=== PATIENT | female | born 1935 | race Caucasian/White ===

== ENCOUNTER → 2016-06-11 | Outpatient (CLI) | payer MEDICARE, BC ==
[~2016-06-11] MED LIST: ASPIR LOW81 MG PO; ATENOLOL50 MG PO; HCTZ 25MG25 MG PO; LEVOTHYROXIN0.125 MG PO; LISINOPRIL40 MG PO; PLAVIX 75MG TAB75 MG PO; PRAVACHOL80 MG PO; PROTONIX 40MG T40 MG PO; VITAMIN D35000 IU PO; WELLBUTRIN75 MG PO; ZOLOFT100 MG PO
== END ==
LOC: MAMMO 09:28
DX: Z12.31 Encounter for screening mammogram for malignant neoplasm of breast (principal); Z00.00 Encounter for general adult medical examination without abnormal findings
CPT/HCPCS: G0202

== ENCOUNTER → 2016-06-11 | Outpatient (CLI) | payer MEDICARE, BC | LOC: MAMMO 09:23 | DX: Z00.00 Encounter for general adult medical examination without abnormal findings (principal); I25.10 Atherosclerotic heart disease of native coronary artery without angina pectoris; Z13.220 Encounter for screening for lipoid disorders; I10 Essential (primary) hypertension; E03.9 Hypothyroidism, unspecified | CPT/HCPCS: G0202 ==

== ENCOUNTER 2016-07-25 18:13 | Emergency (ER) | payer MEDICARE, BC ==
[2016-07-25 22:15] VITALS: BP 98/59
== END 2016-07-25 22:15 | disposition short-term general hospital (02) ==
LOC: ED 18:13
DX: K81.0 Acute cholecystitis (principal)
CPT/HCPCS: A4353; J0595; J1956; J7030; Q9967

== ENCOUNTER → 2016-08-04 | Outpatient (CLI) | payer MEDICARE, BC | LOC: LAB 10:14 | DX: Z86.19 Personal history of other infectious and parasitic diseases (principal); I10 Essential (primary) hypertension; R74.8 Abnormal levels of other serum enzymes; D53.9 Nutritional anemia, unspecified ==

== ENCOUNTER → 2016-08-18 | Outpatient (CLI) | payer MEDICARE, BC ==
[2016-07-25 22:15] VITALS: BP 98/59
== END ==
LOC: RAD 09:57
DX: M54.5 Low back pain (principal)

== ENCOUNTER → 2016-09-15 | Outpatient (CLI) | payer MEDICARE, BC | LOC: LAB 09:39 | DX: R74.8 Abnormal levels of other serum enzymes (principal); E78.2 Mixed hyperlipidemia ==

== ENCOUNTER → 2016-09-24 | Outpatient (CLI) | payer MEDICARE, BC | LOC: RAD 14:26 | DX: S62.636A Displaced fracture of distal phalanx of right little finger, initial encounter for closed fracture (principal) ==

== ENCOUNTER → 2016-12-15 | Outpatient (CLI) | payer MEDICARE, BC ==
[~2016-12-15] VITALS: Ht 152.4 cm; Wt 102.7 kg
[2016-12-15 13:58] VITALS: BP 180/84
== END ==
LOC: AMSURD 13:36
DX: Z01.810 Encounter for preprocedural cardiovascular examination (principal); H28 Cataract in diseases classified elsewhere

== ENCOUNTER → 2017-10-11 | Outpatient (CLI) | payer MEDICARE, BC ==
[2016-12-15 13:58] VITALS: BP 180/84
[2017-10-11 10:54] LABS: EOS # 0.3 (0.04-0.40); EOS % 5.5 % (1.0-5.0); HEMATOCRIT 41.8 % (37.0-47.0); HEMOGLOBIN 13.5 g/dL (12.5-16.0); LYMPH# 1.1 (1.50-4.00); MEAN CELL VOLUME 89 fl (78-100); MEAN CORPUSCULAR HEMOGLOBIN 29 pg (27-31); MEAN CORPUSCULAR HGB CONC 32 g/dL (33-37); MEAN PLATELET VOLUME 8.9 fl (7.4-10.4); MONO # 0.4 (0.20-0.80); NEU # 2.7 (1.40-6.50); PLATELET COUNT 198 K/mm3 (130-400); RED BLOOD COUNT 4.71 M/mm3 (4.10-5.30); RED CELL DISTRIBUTION WIDTH 14.3 % (11.5-14.5); WHITE BLOOD COUNT 4.5 K/mm3 (4.8-10.8)
== END ==
LOC: LAB 10:43
PROVIDERS: Nurse Practitioner Family
DX: Z00.00 Encounter for general adult medical examination without abnormal findings (principal); E03.9 Hypothyroidism, unspecified; I25.10 Atherosclerotic heart disease of native coronary artery without angina pectoris; I10 Essential (primary) hypertension; I48.91 Unspecified atrial fibrillation

== ENCOUNTER → 2017-12-15 | Outpatient (CLI) | payer MEDICARE, BC ==
[2016-12-15 13:58] VITALS: BP 180/84
[2017-12-15 13:20] LABS: ALBUMIN 3.9 g/dL (3.5-5.0); DIRECT BILIRUBIN 0.3 mg/dL (0.0-0.4); TOTAL BILIRUBIN 0.5 mg/dL (0.2-1.3); TOTAL PROTEIN 6.7 g/dL (6.3-8.2)
== END ==
LOC: LAB 12:46
PROVIDERS: Nurse Practitioner Family
DX: E03.9 Hypothyroidism, unspecified (principal); E78.2 Mixed hyperlipidemia

== ENCOUNTER → 2018-03-07 | Outpatient (CLI) | payer MEDICARE, BC ==
[2016-12-15 13:58] VITALS: BP 180/84
[2018-03-07 12:51] LABS: CALCIUM 9.3 mg/dL (8.4-10.2); POTASSIUM 3.1 mmol/L (3.6-5.0)
[2018-03-07 12:55] LABS: HEMATOCRIT 36.2 % (37.0-47.0); HEMOGLOBIN 11.4 g/dL (12.5-16.0); MEAN PLATELET VOLUME 8.9 fl (7.4-10.4); RED BLOOD COUNT 4.03 M/mm3 (4.10-5.30); RED CELL DISTRIBUTION WIDTH 14.2 % (11.5-14.5)
== END ==
LOC: LAB 12:12
PROVIDERS: Internal Medicine Interventional Cardiology
DX: I49.5 Sick sinus syndrome (principal)

== ENCOUNTER → 2018-03-09 | Outpatient (CLI) | payer MEDICARE, BC ==
[2016-12-15 13:58] VITALS: BP 180/84
== END ==
LOC: RAD 10:11
DX: Z45.018 Encounter for adjustment and management of other part of cardiac pacemaker (principal)

== ENCOUNTER → 2018-06-15 | Outpatient (CLI) | payer MEDICARE, BC ==
[2016-12-15 13:58] VITALS: BP 180/84
[~2018-06-15] MED LIST changes: +AMIODARONE200 MG PO; +ELIQUIS2.5 MG PO; +ELIQUIS5 MG PO; +ISOSORBIDE MONO60 M2 PO; +LEVOTHYROXINE175 MCG PO; +LOPRESSOR 550 MG/TAB PO; +NATURE'S BLEN5000 IU PO; -PROTONIX 40MG T40 MG PO; +PROTONIX TR40 M1 PO; -VITAMIN D35000 IU PO; +WELLBUTRIN 75MG75 MG PO; +ZOLOFT 100MG100 MG PO; -ZOLOFT100 MG PO
== END ==
LOC: LAB 10:10 → EDBD 10:10
DX: N30.01 Acute cystitis with hematuria (principal)

== ENCOUNTER 2018-06-19 15:52 | Observation (INO) | payer MEDICARE, BC ==
[~2018-06-19] VITALS: Ht 152.4 cm; Wt 92.8 kg
[~2018-06-19 15:52] MED LIST changes: -AMIODARONE200 MG PO; -ELIQUIS2.5 MG PO; -ELIQUIS5 MG PO; -ISOSORBIDE MONO60 M2 PO; -LEVOTHYROXINE175 MCG PO; -LOPRESSOR 550 MG/TAB PO; -WELLBUTRIN 75MG75 MG PO
[2018-06-19] MEDS ORDERED: ELIQUIS2.5 MG PO (16:00)
[2018-06-19] MEDS ORDERED: AMIODARONE200 MG PO (16:01)
[2018-06-19] MEDS ORDERED: WELLBUTRIN 75MG75 MG PO (16:02)
[2018-06-19] MEDS ORDERED: LOPRESSOR 550 MG/TAB PO (16:02)
[2018-06-19] MEDS ORDERED: ISOSORBIDE MONO60 M2 PO (16:02)
[2018-06-19] MEDS ORDERED: PRAVACHOL80 MG PO (16:03)
[2018-06-19 16:41] LABS: HEMATOCRIT 30.8 % (37.0-47.0); HEMOGLOBIN 9.3 g/dL (12.5-16.0); MEAN CELL VOLUME 81 fl (78-100); MEAN CORPUSCULAR HEMOGLOBIN 25 pg (27-31); MEAN CORPUSCULAR HGB CONC 30 g/dL (33-37); MEAN PLATELET VOLUME 8.3 fl (7.4-10.4); PLATELET COUNT 194 K/mm3 (130-400); RED BLOOD COUNT 3.79 M/mm3 (4.10-5.30); RED CELL DISTRIBUTION WIDTH 15.1 % (11.5-14.5); WHITE BLOOD COUNT 5.4 K/mm3 (4.8-10.8)
[2018-06-19 16:58] LABS: ALBUMIN 3.8 g/dL (3.5-5.0); CALCIUM 9.1 mg/dL (8.4-10.2); TOTAL BILIRUBIN 0.5 mg/dL (0.2-1.3); TOTAL PROTEIN 6.4 g/dL (6.3-8.2)
[2018-06-19 17:05] LABS: POTASSIUM 2.8 mmol/L (3.6-5.0)
[2018-06-19 17:17] LABS: URINE APPEARANCE CLOUDY; URINE COLOR YELLOW
[2018-06-19 17:18] LABS: URINE BILIRUBIN NEGATIVE (NEGATIVE); URINE BLOOD NEGATIVE (NEGATIVE); URINE GLUCOSE NEGATIVE (NEGATIVE); URINE KETONE NEGATIVE (NEGATIVE); URINE LEUKOCYTE ESTERASE TRACE (NEGATIVE); URINE NITRATE NEGATIVE (NEGATIVE); URINE PROTEIN(semi-quant) TRACE mg/dL (NEGATIVE); URINE UROBILINOGEN NORMAL (NORMAL)
[2018-06-19 17:19] LABS: HYPOCHROMIA 1+; LYMPHOCYTE 8 % (20-51); MONOCYTE 9 % (3-10); NEUTROPHILS 81 % (42-75)
[2018-06-19 17:20] LABS: MICROCYTOSIS 1+; OVALOCYTES 1+; POLYCHROMASIA 1+; TEAR DROP CELLS 1+
[2018-06-19] MEDS ORDERED: LEVOTHYROXINE175 MCG PO (17:41)
[2018-06-19] MEDS ORDERED: ELIQUIS5 MG PO (17:42)
[2018-06-19 18:41] VITALS: BP 128/82
[2018-06-19 18:42] VITALS: BP 128/82
[2018-06-19 23:43] VITALS: BP 127/82
[2018-06-20 03:00] VITALS: BP 130/84
[2018-06-20 06:20] VITALS: BP 105/62
[2018-06-20 07:28] LABS: CALCIUM 8.6 mg/dL (8.4-10.2)
[2018-06-20 07:38] LABS: HEMATOCRIT 30.3 % (37.0-47.0); MEAN CELL VOLUME 82 fl (78-100); MEAN CORPUSCULAR HGB CONC 30 g/dL (33-37); MEAN PLATELET VOLUME 9.2 fl (7.4-10.4); PLATELET COUNT 188 K/mm3 (130-400); RED BLOOD COUNT 3.71 M/mm3 (4.10-5.30); RED CELL DISTRIBUTION WIDTH 15.3 % (11.5-14.5); WHITE BLOOD COUNT 3.8 K/mm3 (4.8-10.8)
[2018-06-20 08:01] LABS: MEAN CORPUSCULAR HEMOGLOBIN 24 pg (27-31)
[2018-06-20 08:31] LABS: LYMPHOCYTE 17 % (20-51); MONOCYTE 16 % (3-10); NEUTROPHILS 62 % (42-75); OVALOCYTES 1+
[2018-06-20 08:32] LABS: POTASSIUM 2.9 mmol/L (3.6-5.0)
[2018-06-20 10:36] VITALS: BP 121/78
[2018-06-20 14:43] VITALS: BP 117/80
[2018-06-20 16:02] LABS: CALCIUM 8.4 mg/dL (8.4-10.2)
[2018-06-20 16:33] LABS: TRANSFERRIN 273 mg/dL (192-382)
[2018-06-20 18:12] VITALS: BP 126/86
[2018-06-20 23:34] VITALS: BP 141/87
[2018-06-21 02:48] VITALS: BP 145/81
[2018-06-21 05:56] LABS: HEMATOCRIT 31.9 % (37.0-47.0); HEMOGLOBIN 9.6 g/dL (12.5-16.0); MEAN CELL VOLUME 82 fl (78-100); MEAN CORPUSCULAR HEMOGLOBIN 25 pg (27-31); MEAN CORPUSCULAR HGB CONC 30 g/dL (33-37); MEAN PLATELET VOLUME 8.8 fl (7.4-10.4); PLATELET COUNT 157 K/mm3 (130-400); RED CELL DISTRIBUTION WIDTH 15.7 % (11.5-14.5); WHITE BLOOD COUNT 4.7 K/mm3 (4.8-10.8)
[2018-06-21 06:20] VITALS: BP 156/86
[2018-06-21 06:38] LABS: CALCIUM 8.6 mg/dL (8.4-10.2); POTASSIUM 3.8 mmol/L (3.6-5.0)
[2018-06-21 06:39] LABS: LYMPHOCYTE 22 % (20-51); MONOCYTE 13 % (3-10); NEUTROPHILS 65 % (42-75)
[2018-06-21 06:40] LABS: HYPOCHROMIA 1+; OVALOCYTES 1+; POLYCHROMASIA 1+
[2018-06-21 10:15] VITALS: BP 146/81
== END 2018-06-21 10:35 | disposition home or self-care (01) ==
LOC: ED 15:52 → EDBD 16:19 → ED 16:19 → MED/SURG 18:05 → ED 18:05 → EDBD 18:05 → MED/SURG 18:06
PROVIDERS: Internal Medicine; ADMIT Family Medicine
DX: R11.0 Nausea (principal); E87.1 Hypo-osmolality and hyponatremia; E87.6 Hypokalemia; E86.9 Volume depletion, unspecified; D50.9 Iron deficiency anemia, unspecified; N39.0 Urinary tract infection, site not specified; R53.81 Other malaise; R53.83 Other fatigue; K21.9 Gastro-esophageal reflux disease without esophagitis; Z79.01 Long term (current) use of anticoagulants; Z79.82 Long term (current) use of aspirin; Z88.2 Allergy status to sulfonamides
CPT/HCPCS: A4216; G0378; J0696; J3480

== ENCOUNTER → 2018-06-27 | Outpatient (CLI) | payer MEDICARE, BC ==
[2018-06-21 10:15] VITALS: BP 146/81
[~2018-06-27] MED LIST changes: +AMIODARONE200 MG PO; +ELIQUIS2.5 MG PO; +ELIQUIS5 MG PO; +ISOSORBIDE MONO60 M2 PO; +LEVOTHYROXINE175 MCG PO; +LOPRESSOR 550 MG/TAB PO; +WELLBUTRIN 75MG75 MG PO
[2018-06-27 09:29] LABS: BASO # 0.1 (0.02-0.10); EOS # 0.1 (0.04-0.40); EOS % 3.2 % (1.0-5.0); HEMATOCRIT 30.9 % (37.0-47.0); MEAN CELL VOLUME 82 fl (78-100); MEAN PLATELET VOLUME 9.5 fl (7.4-10.4); MONO # 0.5 (0.20-0.80); NEU # 3.1 (1.40-6.50); PLATELET COUNT 243 K/mm3 (130-400); RED BLOOD COUNT 3.76 M/mm3 (4.10-5.30); RED CELL DISTRIBUTION WIDTH 16.1 % (11.5-14.5); WHITE BLOOD COUNT 4.4 K/mm3 (4.8-10.8)
[2018-06-27 09:31] LABS: LYMPH# 0.6 (1.50-4.00); MEAN CORPUSCULAR HEMOGLOBIN 24 pg (27-31); MEAN CORPUSCULAR HGB CONC 29 g/dL (33-37)
[2018-06-27 10:03] LABS: ALBUMIN 3.6 g/dL (3.5-5.0); CALCIUM 9.2 mg/dL (8.4-10.2); POTASSIUM 4.7 mmol/L (3.6-5.0); TOTAL BILIRUBIN 0.5 mg/dL (0.2-1.3)
== END ==
LOC: LAB 08:56
PROVIDERS: Internal Medicine
DX: I25.10 Atherosclerotic heart disease of native coronary artery without angina pectoris (principal); D63.8 Anemia in other chronic diseases classified elsewhere; I10 Essential (primary) hypertension; E03.9 Hypothyroidism, unspecified; R53.83 Other fatigue

== ENCOUNTER → 2018-06-28 | Day surgery (SDC) | payer MEDICARE, BC | LOC: MSO 13:09 | DX: D12.5 Benign neoplasm of sigmoid colon (principal); K57.30 Diverticulosis of large intestine without perforation or abscess without bleeding; K29.70 Gastritis, unspecified, without bleeding; K21.9 Gastro-esophageal reflux disease without esophagitis; Z88.2 Allergy status to sulfonamides; E03.9 Hypothyroidism, unspecified; K92.1 Melena; D50.0 Iron deficiency anemia secondary to blood loss (chronic); Z79.01 Long term (current) use of anticoagulants; Z95.0 Presence of cardiac pacemaker; Z96.643 Presence of artificial hip joint, bilateral; Z79.82 Long term (current) use of aspirin; I11.0 Hypertensive heart disease with heart failure; I50.9 Heart failure, unspecified; M19.90 Unspecified osteoarthritis, unspecified site; E66.01 Morbid (severe) obesity due to excess calories; I25.10 Atherosclerotic heart disease of native coronary artery without angina pectoris ==

== ENCOUNTER → 2018-07-13 | Outpatient (CLI) | payer MEDICARE, BC ==
[2018-06-21 10:15] VITALS: BP 146/81
[2018-07-13 15:23] LABS: EOS # 0.2 (0.04-0.40); EOS % 3.1 % (1.0-5.0); HEMOGLOBIN 11.3 g/dL (12.5-16.0); LYMPH# 0.8 (1.50-4.00); MEAN CELL VOLUME 86 fl (78-100); MEAN CORPUSCULAR HEMOGLOBIN 26 pg (27-31); MEAN CORPUSCULAR HGB CONC 30 g/dL (33-37); MEAN PLATELET VOLUME 9.3 fl (7.4-10.4); MONO # 0.6 (0.20-0.80); NEU # 3.6 (1.40-6.50); PLATELET COUNT 219 K/mm3 (130-400); RED BLOOD COUNT 4.42 M/mm3 (4.10-5.30); WHITE BLOOD COUNT 5.2 K/mm3 (4.8-10.8)
[2018-07-13 15:31] LABS: POTASSIUM 3.3 mmol/L (3.6-5.0); TOTAL BILIRUBIN 0.6 mg/dL (0.2-1.3); TOTAL PROTEIN 6.6 g/dL (6.3-8.2)
[2018-07-13 15:33] LABS: RED CELL DISTRIBUTION WIDTH 22.5 % (11.5-14.5)
== END ==
LOC: LAB 14:58
PROVIDERS: Internal Medicine
DX: I10 Essential (primary) hypertension (principal); E03.9 Hypothyroidism, unspecified; I25.10 Atherosclerotic heart disease of native coronary artery without angina pectoris

== ENCOUNTER → 2018-07-18 | Outpatient (CLI) | payer MEDICARE, BC ==
[2018-06-21 10:15] VITALS: BP 146/81
[~2018-07-18] MED LIST changes: +ALDACTONE25 M1 PO; +GOOD NEIGHBOR100 M2 PO; +POTASSIUM CHLO20 ME3 PO
[2018-07-18 10:19] LABS: ALBUMIN 3.8 g/dL (3.5-5.0); CALCIUM 8.9 mg/dL (8.4-10.2); TOTAL BILIRUBIN 0.5 mg/dL (0.2-1.3); TOTAL PROTEIN 6.4 g/dL (6.3-8.2)
[2018-07-18 10:23] LABS: HEMATOCRIT 38.2 % (37.0-47.0); HEMOGLOBIN 11.2 g/dL (12.5-16.0); MEAN CELL VOLUME 88 fl (78-100); MEAN CORPUSCULAR HEMOGLOBIN 26 pg (27-31); MEAN PLATELET VOLUME 9.6 fl (7.4-10.4); PLATELET COUNT 216 K/mm3 (130-400); RED BLOOD COUNT 4.34 M/mm3 (4.10-5.30)
[2018-07-18 10:34] LABS: MEAN CORPUSCULAR HGB CONC 29 g/dL (33-37)
[2018-07-18 10:35] LABS: RED CELL DISTRIBUTION WIDTH 23.1 % (11.5-14.5)
[2018-07-18 10:42] LABS: POTASSIUM 2.9 mmol/L (3.6-5.0)
[2018-07-18 10:57] LABS: LYMPHOCYTE 14 % (20-51); MONOCYTE 11 % (3-10); NEUTROPHILS 73 % (42-75)
== END ==
LOC: LAB 09:47
PROVIDERS: Internal Medicine
DX: I48.91 Unspecified atrial fibrillation (principal); I10 Essential (primary) hypertension; E61.1 Iron deficiency

== ENCOUNTER 2018-07-22 | Inpatient (IN) | payer MEDICARE, BC ==
[~2018-07-22] VITALS: Ht 152.4 cm; Wt 89.7 kg
[~2018-07-22] MED LIST changes: -ALDACTONE25 M1 PO; -GOOD NEIGHBOR100 M2 PO; -POTASSIUM CHLO20 ME3 PO
[2018-07-22] MEDS ORDERED: ALDACTONE25 M1 PO (23:06)
[2018-07-22] MEDS ORDERED: POTASSIUM CHLO20 ME3 PO (23:07)
[2018-07-22] MEDS ORDERED: GOOD NEIGHBOR100 M2 PO (23:12)
[2018-07-23] VITALS (8 sets, daily range): BP systolic 106–149; BP diastolic 57–101
[2018-07-23 09:29] LABS: POTASSIUM 3.4 mmol/L (3.6-5.0)
[2018-07-24 03:30] VITALS: BP 127/76
[2018-07-24 06:32] VITALS: BP 150/87
[2018-07-24 08:19] LABS: CALCIUM 8.5 mg/dL (8.4-10.2)
[2018-07-24 08:32] LABS: POTASSIUM 2.8 mmol/L (3.6-5.0)
[2018-07-24 11:10] VITALS: BP 98/61
[2018-07-24 15:00] VITALS: BP 108/71
[2018-07-24 18:16] VITALS: BP 112/68
[2018-07-24 23:10] VITALS: BP 103/67
[2018-07-25 02:35] VITALS: BP 114/76
[2018-07-25 06:03] VITALS: BP 135/85
[2018-07-25 07:00] LABS: CALCIUM 8.5 mg/dL (8.4-10.2); GLUCOSE 80 mg/dL (65-105); POTASSIUM 3.3 mmol/L (3.6-5.0); SODIUM 137 mmol/L (137-145)
[2018-07-25 07:16] LABS: CARBON DIOXIDE > 40 mmol/L (22-30)
[2018-07-25 11:58] VITALS: BP 93/63
[2018-07-25 14:20] VITALS: BP 100/52
[2018-07-25 18:32] VITALS: BP 87/55
[2018-07-25 23:27] VITALS: BP 120/77
[2018-07-26 03:05] VITALS: BP 106/70
[2018-07-26 05:34] LABS: HEMATOCRIT 37.7 % (37.0-47.0); HEMOGLOBIN 11.3 g/dL (12.5-16.0); MEAN CELL VOLUME 90 fl (78-100); MEAN CORPUSCULAR HEMOGLOBIN 27 pg (27-31); MEAN CORPUSCULAR HGB CONC 30 g/dL (33-37); MEAN PLATELET VOLUME 9.6 fl (7.4-10.4); PLATELET COUNT 116 K/mm3 (130-400); RED BLOOD COUNT 4.21 M/mm3 (4.10-5.30); WHITE BLOOD COUNT 3.1 K/mm3 (4.8-10.8)
[2018-07-26 05:44] LABS: RED CELL DISTRIBUTION WIDTH 22.4 % (11.5-14.5)
[2018-07-26 05:47] LABS: ALBUMIN 3.2 g/dL (3.5-5.0); CALCIUM 8.1 mg/dL (8.4-10.2); TOTAL BILIRUBIN 0.5 mg/dL (0.2-1.3); TOTAL PROTEIN 5.7 g/dL (6.3-8.2)
[2018-07-26 06:17] VITALS: BP 109/71
[2018-07-26 06:33] LABS: BAND 3 % (0-10); LYMPHOCYTE 12 % (20-51); MONOCYTE 14 % (3-10); NEUTROPHILS 69 % (42-75)
[2018-07-26 06:34] LABS: ACANTHROCYTES 1+; OVALOCYTES 1+
[2018-07-26 06:48] LABS: POTASSIUM 2.9 mmol/L (3.6-5.0)
[2018-07-26 11:20] VITALS: BP 94/64
[2018-07-26 15:00] VITALS: BP 115/78
== END 2018-07-26 13:06 | disposition swing bed (61) | DRG 293 ==
LOC: MED/SURG 23:47
PROVIDERS: Internal Medicine; Nurse Practitioner; ADMIT Physician Assistant
DX: I50.23 Acute on chronic systolic (congestive) heart failure (principal); I25.10 Atherosclerotic heart disease of native coronary artery without angina pectoris; Z95.1 Presence of aortocoronary bypass graft; Z95.5 Presence of coronary angioplasty implant and graft; Z95.0 Presence of cardiac pacemaker; I48.91 Unspecified atrial fibrillation; E03.9 Hypothyroidism, unspecified; R09.02 Hypoxemia; E87.6 Hypokalemia
CPT/HCPCS: J1650; J1940

== ENCOUNTER 2018-07-22 21:32 | Emergency (ER) | payer MEDICARE, BC ==
[2018-07-22 22:29] LABS: HEMOGLOBIN 12.2 g/dL (12.5-16.0); MEAN CELL VOLUME 88 fl (78-100); MEAN CORPUSCULAR HEMOGLOBIN 27 pg (27-31); MEAN CORPUSCULAR HGB CONC 31 g/dL (33-37); MEAN PLATELET VOLUME 9.5 fl (7.4-10.4); PLATELET COUNT 144 K/mm3 (130-400); RED BLOOD COUNT 4.56 M/mm3 (4.10-5.30); WHITE BLOOD COUNT 5.6 K/mm3 (4.8-10.8)
[2018-07-22 22:44] LABS: ALBUMIN 4.1 g/dL (3.5-5.0); CALCIUM 9.5 mg/dL (8.4-10.2); POTASSIUM 3.8 mmol/L (3.6-5.0); TOTAL BILIRUBIN 0.8 mg/dL (0.2-1.3); TOTAL PROTEIN 6.7 g/dL (6.3-8.2)
[2018-07-22 22:49] LABS: URINE APPEARANCE CLEAR; URINE BILIRUBIN NEGATIVE (NEGATIVE); URINE BLOOD TRACE (NEGATIVE); URINE COLOR YELLOW; URINE GLUCOSE NEGATIVE (NEGATIVE); URINE KETONE NEGATIVE (NEGATIVE); URINE LEUKOCYTE ESTERASE NEGATIVE (NEGATIVE); URINE MUCUS PRESENT (NOT PRESENT); URINE NITRATE NEGATIVE (NEGATIVE); URINE PROTEIN(semi-quant) 1+ mg/dL (NEGATIVE); URINE UROBILINOGEN NORMAL (NORMAL); URINE WBC 0-1 /hpf (0-3)
[2018-07-22 22:50] LABS: RED CELL DISTRIBUTION WIDTH 23.7 % (11.5-14.5)
[2018-07-22 22:58] LABS: TROPONIN-I < 0.03 ng/mL (0.00-0.06)
[2018-07-22] MEDS ORDERED: ALDACTONE25 M1 PO (23:06)
[2018-07-22] MEDS ORDERED: POTASSIUM CHLO20 ME3 PO (23:07)
[2018-07-22] MEDS ORDERED: GOOD NEIGHBOR100 M2 PO (23:12)
[2018-07-22 23:19] LABS: BAND 3 % (0-10); LYMPHOCYTE 5 % (20-51); MONOCYTE 16 % (3-10); NEUTROPHILS 76 % (42-75); OVALOCYTES 1+; SCHISTOCYTES 1+; STOMATOCYTE 1+; TEAR DROP CELLS 1+
[2018-07-23 00:04] VITALS: BP 148/101
== END 2018-07-23 00:04 | disposition other institution (70) ==
LOC: ED 21:32
PROVIDERS: Physician Assistant
DX: I50.9 Heart failure, unspecified (principal); R09.02 Hypoxemia; I48.91 Unspecified atrial fibrillation; Z88.2 Allergy status to sulfonamides; Z87.891 Personal history of nicotine dependence; Z87.11 Personal history of peptic ulcer disease; Z98.51 Tubal ligation status; Z95.5 Presence of coronary angioplasty implant and graft; Z96.641 Presence of right artificial hip joint
CPT/HCPCS: J1940

== ENCOUNTER 2018-07-26 12:56 | Inpatient (IN) | payer MEDICARE, BC ==
[~2018-07-26] VITALS: Ht 152.4 cm; Wt 86.8 kg
[~2018-07-26 12:56] MED LIST changes: +ALDACTONE25 M1 PO; +GOOD NEIGHBOR100 M2 PO; +POTASSIUM CHLO20 ME3 PO
[2018-07-26 13:21] VITALS: BP 94/54
[2018-07-26 13:24] VITALS: BP 94/54
[2018-07-26 18:00] VITALS: BP 115/76
[2018-07-26 18:38] LABS: CALCIUM 8.2 mg/dL (8.4-10.2); POTASSIUM 3.9 mmol/L (3.6-5.0)
[2018-07-26 21:42] LABS: URINE APPEARANCE CLOUDY; URINE BILIRUBIN NEGATIVE (NEGATIVE); URINE BLOOD 50 ery/uL (NEGATIVE); URINE COLOR YELLOW; URINE GLUCOSE NEGATIVE (NEGATIVE); URINE KETONE NEGATIVE (NEGATIVE); URINE LEUKOCYTE ESTERASE 1+ (NEGATIVE); URINE NITRATE NEGATIVE (NEGATIVE); URINE PROTEIN(semi-quant) NEGATIVE (NEGATIVE); URINE UROBILINOGEN NORMAL (NORMAL); URINE WBC 16-30 /hpf (0-3)
[2018-07-27 06:01] VITALS: BP 124/76
[2018-07-27 06:55] LABS: CALCIUM 8.1 mg/dL (8.4-10.2); GLUCOSE 81 mg/dL (65-105); POTASSIUM 3.4 mmol/L (3.6-5.0); SODIUM 136 mmol/L (137-145)
[2018-07-27 07:14] LABS: CARBON DIOXIDE > 40 mmol/L (22-30)
[2018-07-27 15:16] VITALS: BP 123/65
[2018-07-28 06:16] VITALS: BP 150/89
[2018-07-28 06:38] LABS: CALCIUM 8.5 mg/dL (8.4-10.2); POTASSIUM 3.8 mmol/L (3.6-5.0)
[2018-07-28 18:01] VITALS: BP 123/83
[2018-07-29 06:22] VITALS: BP 124/47
[2018-07-29 11:02] LABS: CALCIUM 8.9 mg/dL (8.4-10.2); POTASSIUM 3.8 mmol/L (3.6-5.0)
[2018-07-29 18:17] VITALS: BP 105/20
[2018-07-30 06:02] VITALS: BP 117/78
[2018-07-30 18:30] VITALS: BP 100/65
[2018-07-31 06:42] VITALS: BP 111/73
[2018-07-31 11:53] LABS: CALCIUM 9.5 mg/dL (8.4-10.2); POTASSIUM 4.2 mmol/L (3.6-5.0)
[2018-07-31 18:00] VITALS: BP 103/62
[2018-08-01 05:40] VITALS: BP 112/73
[2018-08-01 18:13] VITALS: BP 79/50
[2018-08-02 06:12] VITALS: BP 93/61
[2018-08-02 14:39] LABS: EOS # 0.2 (0.04-0.40); EOS % 3.4 % (1.0-5.0); HEMATOCRIT 42.1 % (37.0-47.0); HEMOGLOBIN 13.1 g/dL (12.5-16.0); LYMPH# 1.1 (1.50-4.00); MEAN CELL VOLUME 85 fl (78-100); MEAN CORPUSCULAR HEMOGLOBIN 26 pg (27-31); MEAN CORPUSCULAR HGB CONC 31 g/dL (33-37); MEAN PLATELET VOLUME 9.4 fl (7.4-10.4); MONO # 0.7 (0.20-0.80); NEU # 3.8 (1.40-6.50); PLATELET COUNT 237 K/mm3 (130-400); RED BLOOD COUNT 4.96 M/mm3 (4.10-5.30); WHITE BLOOD COUNT 5.9 K/mm3 (4.8-10.8)
[2018-08-02 14:49] LABS: RED CELL DISTRIBUTION WIDTH 21.6 % (11.5-14.5)
[2018-08-02 14:52] LABS: ALBUMIN 4.1 g/dL (3.5-5.0); CALCIUM 9.6 mg/dL (8.4-10.2); TOTAL BILIRUBIN 0.7 mg/dL (0.2-1.3); TOTAL PROTEIN 7.3 g/dL (6.3-8.2)
[2018-08-02 15:09] LABS: TROPONIN-I < 0.03 ng/mL (0.00-0.06)
[2018-08-02 16:00] VITALS: BP 122/71
[2018-08-02 16:50] VITALS: BP 65/35
[2018-08-02 17:06] VITALS: BP 92/60
[2018-08-02 17:20] VITALS: BP 122/71
[2018-08-02 19:47] LABS: PH-URINE 6.5 (5.0 - 8.0); URINE APPEARANCE HAZY; URINE BILIRUBIN NEGATIVE (NEGATIVE); URINE BLOOD NEGATIVE (NEGATIVE); URINE COLOR YELLOW; URINE GLUCOSE NEGATIVE (NEGATIVE); URINE KETONE NEGATIVE (NEGATIVE); URINE NITRATE NEGATIVE (NEGATIVE); URINE PROTEIN(semi-quant) TRACE mg/dL (NEGATIVE); URINE UROBILINOGEN NORMAL (NORMAL)
[2018-08-02 19:48] LABS: URINE LEUKOCYTE ESTERASE NEGATIVE (NEGATIVE)
[2018-08-02 20:00] VITALS: BP 88/59
[2018-08-03] VITALS (8 sets, daily range): BP systolic 79–112; BP diastolic 50–71
[2018-08-03 06:32] LABS: HEMATOCRIT 37.9 % (37.0-47.0); HEMOGLOBIN 11.8 g/dL (12.5-16.0); MEAN CELL VOLUME 85 fl (78-100); MEAN CORPUSCULAR HEMOGLOBIN 26 pg (27-31); MEAN CORPUSCULAR HGB CONC 31 g/dL (33-37); MEAN PLATELET VOLUME 9.8 fl (7.4-10.4); PLATELET COUNT 205 K/mm3 (130-400); RED BLOOD COUNT 4.48 M/mm3 (4.10-5.30); WHITE BLOOD COUNT 4.5 K/mm3 (4.8-10.8)
[2018-08-03 06:59] LABS: RED CELL DISTRIBUTION WIDTH 20.9 % (11.5-14.5)
[2018-08-03 07:01] LABS: ALBUMIN 3.4 g/dL (3.5-5.0); POTASSIUM 3.5 mmol/L (3.6-5.0); TOTAL BILIRUBIN 0.6 mg/dL (0.2-1.3); TOTAL PROTEIN 6.3 g/dL (6.3-8.2)
[2018-08-03 07:21] LABS: BAND 2 % (0-10); LYMPHOCYTE 24 % (20-51); MONOCYTE 4 % (3-10); NEUTROPHILS 68 % (42-75)
[2018-08-04 03:20] VITALS: BP 107/68
[2018-08-04 06:20] VITALS: BP 106/71
[2018-08-04 06:51] LABS: CALCIUM 9.4 mg/dL (8.4-10.2)
[2018-08-04 11:00] VITALS: BP 110/66
[2018-08-04 15:00] VITALS: BP 110/66
[2018-08-04 19:07] VITALS: BP 99/64
[2018-08-04 20:45] VITALS: BP 97/64
[2018-08-05 06:28] VITALS: BP 104/70
[2018-08-05 06:29] VITALS: BP 104/70
[2018-08-05 18:29] VITALS: BP 86/60
[2018-08-05 21:15] VITALS: BP 108/63
[2018-08-06 06:11] VITALS: BP 114/69
[2018-08-06 11:41] LABS: CALCIUM 9.4 mg/dL (8.4-10.2)
[2018-08-06 18:39] VITALS: BP 99/63
[2018-08-06 18:40] VITALS: BP 99/63
[2018-08-06 20:30] VITALS: BP 105/70
[2018-08-07 06:13] VITALS: BP 148/80
[2018-08-07 17:16] VITALS: BP 125/80
[2018-08-07 19:24] VITALS: BP 112/63
[2018-08-08 06:22] VITALS: BP 128/79
[2018-08-08] MEDS ORDERED: PRAVACHOL80 MG PO (14:04)
[2018-08-08] MEDS ORDERED: POTASSIUM CHLO20 ME3 PO (14:04)
[2018-08-08 18:12] VITALS: BP 88/55
[2018-08-08 19:14] VITALS: BP 116/73
[2018-08-08 19:27] VITALS: BP 116/73
[2018-08-08 21:30] VITALS: BP 110/68
[2018-08-09 06:28] VITALS: BP 120/61
[2018-08-09 06:30] VITALS: BP 120/61
[2018-08-09 12:52] LABS: CALCIUM 9.3 mg/dL (8.4-10.2); POTASSIUM 3.8 mmol/L (3.6-5.0)
[2018-08-09 18:00] VITALS: BP 81/51
[2018-08-09 19:00] VITALS: BP 94/62
[2018-08-10 06:19] VITALS: BP 122/78
[2018-08-10] MEDS ORDERED: IPRATROPIUM BROM3 M1 IH (11:24)
[2018-08-10] MEDS ORDERED: ALBUTEROL2.5 MG/3 M IH (11:24)
[2018-08-10] MEDS ORDERED: LISINOPRIL40 MG PO (11:24)
[2018-08-10] MEDS ORDERED: ALDACTONE25 M1 PO (11:25)
[2018-08-10] MEDS ORDERED: EFFER-K20 MEQ PO (11:26)
[2018-08-10] MEDS ORDERED: FUROSEMIDE40 MG PO (11:26)
[2018-08-10] MEDS ORDERED: CLOPIDOGREL PO (11:48)
== END 2018-08-10 12:30 | disposition home health service (06) | DRG 947 ==
LOC: MED/SURG 12:56
PROVIDERS: Family Medicine; Nurse Practitioner Family; Physician Assistant; ADMIT Nurse Practitioner Primary Care
DX: R53.81 Other malaise (principal); I50.23 Acute on chronic systolic (congestive) heart failure; E87.1 Hypo-osmolality and hyponatremia; Z66 Do not resuscitate; I25.10 Atherosclerotic heart disease of native coronary artery without angina pectoris; Z95.1 Presence of aortocoronary bypass graft; Z95.5 Presence of coronary angioplasty implant and graft; E03.9 Hypothyroidism, unspecified; Z95.0 Presence of cardiac pacemaker; E87.6 Hypokalemia; I95.1 Orthostatic hypotension; R11.2 Nausea with vomiting, unspecified; Z99.81 Dependence on supplemental oxygen
CPT/HCPCS: A4216; J0696; J1650; J1940; J2405; J7030

== ENCOUNTER → 2018-08-12 | Outpatient (CLI) | payer MEDICARE, BC ==
[2018-08-10 06:19] VITALS: BP 122/78
[~2018-08-12] MED LIST changes: +ALBUTEROL2.5 MG/3 M IH; +CLOPIDOGREL PO; +EFFER-K20 MEQ PO; +FUROSEMIDE40 MG PO; +IPRATROPIUM BROM3 M1 IH
[2018-08-12 13:30] LABS: CALCIUM 9.4 mg/dL (8.4-10.2); POTASSIUM 3.9 mmol/L (3.6-5.0)
== END ==
LOC: LAB 12:54
PROVIDERS: Internal Medicine
DX: I10 Essential (primary) hypertension (principal)

== ENCOUNTER → 2018-08-15 | Outpatient (CLI) | payer MEDICARE, BC ==
[2018-08-10 06:19] VITALS: BP 122/78
[2018-08-15 14:12] LABS: HEMATOCRIT 43.6 % (37.0-47.0); HEMOGLOBIN 13.5 g/dL (12.5-16.0); MEAN CELL VOLUME 86 fl (78-100); MEAN CORPUSCULAR HEMOGLOBIN 27 pg (27-31); MEAN CORPUSCULAR HGB CONC 31 g/dL (33-37); MEAN PLATELET VOLUME 9.8 fl (7.4-10.4); PLATELET COUNT 198 K/mm3 (130-400); RED BLOOD COUNT 5.09 M/mm3 (4.10-5.30); WHITE BLOOD COUNT 5.7 K/mm3 (4.8-10.8)
[2018-08-15 14:31] LABS: ALBUMIN 3.6 g/dL (3.5-5.0); CALCIUM 9.2 mg/dL (8.4-10.2); POTASSIUM 3.7 mmol/L (3.6-5.0); TOTAL BILIRUBIN 0.6 mg/dL (0.2-1.3); TOTAL PROTEIN 6.7 g/dL (6.3-8.2)
[2018-08-15 14:47] LABS: RED CELL DISTRIBUTION WIDTH 20.5 % (11.5-14.5)
[2018-08-15 14:48] LABS: LYMPHOCYTE 17 % (20-51); MONOCYTE 12 % (3-10); NEUTROPHILS 71 % (42-75)
== END ==
LOC: LAB 14:01
PROVIDERS: Internal Medicine
DX: E03.9 Hypothyroidism, unspecified (principal); I25.10 Atherosclerotic heart disease of native coronary artery without angina pectoris; I11.0 Hypertensive heart disease with heart failure; I50.9 Heart failure, unspecified

== ENCOUNTER → 2018-08-22 | Outpatient (CLI) | payer MEDICARE, BC ==
[2018-08-10 06:19] VITALS: BP 122/78
[2018-08-22 11:58] LABS: ALBUMIN 3.6 g/dL (3.5-5.0); CALCIUM 9.3 mg/dL (8.4-10.2); POTASSIUM 4.2 mmol/L (3.6-5.0); TOTAL BILIRUBIN 0.6 mg/dL (0.2-1.3); TOTAL PROTEIN 6.4 g/dL (6.3-8.2)
== END ==
LOC: LAB 11:18
PROVIDERS: Internal Medicine
DX: E03.9 Hypothyroidism, unspecified (principal); I11.0 Hypertensive heart disease with heart failure; I50.9 Heart failure, unspecified; I25.10 Atherosclerotic heart disease of native coronary artery without angina pectoris

== ENCOUNTER → 2018-08-24 | Outpatient (CLI) | payer MEDICARE, BC ==
[2018-08-10 06:19] VITALS: BP 122/78
== END ==
LOC: LAB 11:19
DX: I11.0 Hypertensive heart disease with heart failure (principal); I50.9 Heart failure, unspecified; E03.9 Hypothyroidism, unspecified; I25.10 Atherosclerotic heart disease of native coronary artery without angina pectoris

== ENCOUNTER → 2018-09-12 | Outpatient (CLI) | payer MEDICARE, BC ==
[2018-09-12 15:42] LABS: ALBUMIN 3.9 g/dL (3.5-5.0); CALCIUM 9.2 mg/dL (8.4-10.2); POTASSIUM 4.2 mmol/L (3.6-5.0); TOTAL BILIRUBIN 0.4 mg/dL (0.2-1.3); TOTAL PROTEIN 6.7 g/dL (6.3-8.2)
== END ==
LOC: RAD 14:47
PROVIDERS: Internal Medicine
DX: M47.816 Spondylosis without myelopathy or radiculopathy, lumbar region (principal); M43.16 Spondylolisthesis, lumbar region; E03.9 Hypothyroidism, unspecified; I25.10 Atherosclerotic heart disease of native coronary artery without angina pectoris; I11.0 Hypertensive heart disease with heart failure; I50.9 Heart failure, unspecified

== ENCOUNTER → 2018-10-31 | Outpatient (CLI) | payer MEDICARE, BC ==
[2018-10-31 14:35] LABS: EOS # 0.3 (0.04-0.40); EOS % 5.3 % (1.0-5.0); HEMATOCRIT 38.6 % (37.0-47.0); HEMOGLOBIN 12.1 g/dL (12.5-16.0); MEAN CELL VOLUME 90 fl (78-100); MEAN CORPUSCULAR HEMOGLOBIN 28 pg (27-31); MEAN CORPUSCULAR HGB CONC 31 g/dL (33-37); MEAN PLATELET VOLUME 8.9 fl (7.4-10.4); MONO # 0.6 (0.20-0.80); NEU # 3.6 (1.40-6.50); PLATELET COUNT 193 K/mm3 (130-400); RED CELL DISTRIBUTION WIDTH 16.1 % (11.5-14.5); WHITE BLOOD COUNT 5.5 K/mm3 (4.8-10.8)
[2018-10-31 14:38] LABS: ALBUMIN 3.6 g/dL (3.4-4.8); POTASSIUM 4.1 mmol/L (3.5-5.1)
[2018-10-31 14:39] LABS: CALCIUM 9.7 mg/dL (8.3-10.5)
[2018-10-31 14:40] LABS: TOTAL PROTEIN 6.7 g/dL (6.2-8.1)
[2018-10-31 14:42] LABS: TOTAL BILIRUBIN 0.6 mg/dL (0.2-1.2)
== END ==
LOC: LAB 14:11
PROVIDERS: Internal Medicine
DX: I11.0 Hypertensive heart disease with heart failure (principal); I50.9 Heart failure, unspecified; E03.9 Hypothyroidism, unspecified; I25.10 Atherosclerotic heart disease of native coronary artery without angina pectoris

== ENCOUNTER → 2018-11-18 | Outpatient (CLI) | payer MEDICARE, BC ==
[2018-11-18 16:21] LABS: ALBUMIN 3.7 g/dL (3.4-4.8); POTASSIUM 3.9 mmol/L (3.5-5.1)
[2018-11-18 16:22] LABS: CALCIUM 9.5 mg/dL (8.3-10.5)
[2018-11-18 16:24] LABS: TOTAL PROTEIN 6.8 g/dL (6.2-8.1)
[2018-11-18 16:26] LABS: TOTAL BILIRUBIN 0.6 mg/dL (0.2-1.2)
== END ==
LOC: LAB 15:45
PROVIDERS: Internal Medicine
DX: I25.10 Atherosclerotic heart disease of native coronary artery without angina pectoris (principal); E03.9 Hypothyroidism, unspecified; I11.0 Hypertensive heart disease with heart failure; I50.9 Heart failure, unspecified

== ENCOUNTER → 2018-11-28 | Outpatient (CLI) | payer MEDICARE, BC ==
[2018-11-28 12:00] LABS: ALBUMIN 3.7 g/dL (3.4-4.8); POTASSIUM 4.3 mmol/L (3.5-5.1)
[2018-11-28 12:01] LABS: CALCIUM 9.6 mg/dL (8.3-10.5)
[2018-11-28 12:02] LABS: TOTAL PROTEIN 6.7 g/dL (6.2-8.1)
[2018-11-28 12:04] LABS: TOTAL BILIRUBIN 0.7 mg/dL (0.2-1.2)
== END ==
LOC: LAB 11:35
PROVIDERS: Internal Medicine
DX: I11.0 Hypertensive heart disease with heart failure (principal); E03.9 Hypothyroidism, unspecified; I25.10 Atherosclerotic heart disease of native coronary artery without angina pectoris; I50.9 Heart failure, unspecified; R53.83 Other fatigue

== ENCOUNTER → 2018-12-12 | Outpatient (CLI) | payer MEDICARE, BC | LOC: VAS 15:37 → RAD 16:00 → VAS 16:00 | DX: I08.3 Combined rheumatic disorders of mitral, aortic and tricuspid valves (principal); I25.10 Atherosclerotic heart disease of native coronary artery without angina pectoris; I48.0 Paroxysmal atrial fibrillation; I50.32 Chronic diastolic (congestive) heart failure ==

== ENCOUNTER → 2019-02-09 | Outpatient (CLI) | payer MEDICARE, BC ==
[2019-02-09 15:48] LABS: HEMATOCRIT 38.6 % (37.0-47.0); HEMOGLOBIN 12.4 g/dL (12.5-16.0); MEAN CELL VOLUME 90 fl (78-100); MEAN CORPUSCULAR HEMOGLOBIN 29 pg (27-31); MEAN CORPUSCULAR HGB CONC 32 g/dL (33-37); MEAN PLATELET VOLUME 9.5 fl (7.4-10.4); PLATELET COUNT 219 K/mm3 (130-400); RED BLOOD COUNT 4.28 M/mm3 (4.10-5.30); RED CELL DISTRIBUTION WIDTH 13.3 % (11.5-14.5); WHITE BLOOD COUNT 4.7 K/mm3 (4.8-10.8)
[2019-02-09 16:04] LABS: ALBUMIN 3.9 g/dL (3.4-4.8)
[2019-02-09 16:06] LABS: CALCIUM 9.4 mg/dL (8.3-10.5)
[2019-02-09 16:07] LABS: TOTAL PROTEIN 6.7 g/dL (6.2-8.1)
[2019-02-09 16:09] LABS: TOTAL BILIRUBIN 0.4 mg/dL (0.2-1.2)
[2019-02-09 16:14] LABS: MAGNESIUM 1.82 mg/dL (1.60-2.60)
[2019-02-09 16:48] LABS: BAND 1 % (0-10); LYMPHOCYTE 21 % (20-51); MONOCYTE 11 % (3-10); NEUTROPHILS 64 % (42-75)
== END ==
LOC: LAB 15:16
PROVIDERS: Internal Medicine
DX: I11.0 Hypertensive heart disease with heart failure (principal); I50.9 Heart failure, unspecified; I25.10 Atherosclerotic heart disease of native coronary artery without angina pectoris; E03.9 Hypothyroidism, unspecified

== ENCOUNTER → 2019-08-25 | Outpatient (CLI) | payer MEDICARE, BC ==
[2019-08-25 11:43] LABS: ALBUMIN 3.9 g/dL (3.4-4.8); POTASSIUM 4.1 mmol/L (3.5-5.1)
[2019-08-25 11:44] LABS: CALCIUM 9.9 mg/dL (8.3-10.5)
[2019-08-25 11:46] LABS: EOS # 0.2 (0.04-0.40); EOS % 4.1 % (1.0-5.0); HEMATOCRIT 39.9 % (37.0-47.0); HEMOGLOBIN 12.6 g/dL (12.5-16.0); MEAN CELL VOLUME 89 fl (78-100); MEAN CORPUSCULAR HEMOGLOBIN 28 pg (27-31); MEAN CORPUSCULAR HGB CONC 32 g/dL (33-37); MEAN PLATELET VOLUME 9.7 fl (7.4-10.4); MONO # 0.6 (0.20-0.80); NEU # 3.9 (1.40-6.50); PLATELET COUNT 196 K/mm3 (130-400); RED BLOOD COUNT 4.49 M/mm3 (4.10-5.30); WHITE BLOOD COUNT 5.4 K/mm3 (4.8-10.8)
[2019-08-25 11:47] LABS: TOTAL BILIRUBIN 0.4 mg/dL (0.2-1.2)
[2019-08-25 11:53] LABS: MAGNESIUM 2.03 mg/dL (1.60-2.60)
[2019-08-25 12:35] LABS: LYMPH# 0.7 (1.50-4.00)
== END ==
LOC: LAB 11:15
PROVIDERS: Internal Medicine
DX: I10 Essential (primary) hypertension (principal); I25.10 Atherosclerotic heart disease of native coronary artery without angina pectoris; E03.9 Hypothyroidism, unspecified; I48.91 Unspecified atrial fibrillation; E61.1 Iron deficiency

== ENCOUNTER → 2019-12-26 | Outpatient (CLI) | payer MEDICARE, BC | LOC: RAD 16:17 | DX: M43.16 Spondylolisthesis, lumbar region (principal); M51.36 Other intervertebral disc degeneration, lumbar region; M51.37 Other intervertebral disc degeneration, lumbosacral region; M47.816 Spondylosis without myelopathy or radiculopathy, lumbar region; Z96.643 Presence of artificial hip joint, bilateral ==

== ENCOUNTER → 2020-01-10 | Outpatient (CLI) | payer MEDICARE, BC | LOC: VAS 16:21 | DX: I50.32 Chronic diastolic (congestive) heart failure (principal) ==

== ENCOUNTER → 2020-01-18 | Outpatient (CLI) | payer MEDICARE, BC | LOC: RAD 10:16 | DX: M48.061 Spinal stenosis, lumbar region without neurogenic claudication (principal); M43.16 Spondylolisthesis, lumbar region; N83.201 Unspecified ovarian cyst, right side; M54.16 Radiculopathy, lumbar region ==

== ENCOUNTER → 2020-02-16 | Outpatient (CLI) | payer MEDICARE, BC | LOC: CARDREHAB 08:41 → CARDLAB 12:04 | DX: I50.32 Chronic diastolic (congestive) heart failure (principal) | CPT/HCPCS: A9500 ==

== ENCOUNTER 2020-03-01 10:02 | Emergency (ER) | payer MEDICARE, BC ==
[2020-03-01] MEDS ORDERED: ELIQUIS2.5 MG PO (10:47)
[2020-03-01] MEDS ORDERED: LASIX20 M1 PO (10:48)
[2020-03-01] MEDS ORDERED: ASPIRIN E.C. 8181 MG (10:49)
[2020-03-01] MEDS ORDERED: PRAVASTATIN SOD80 MG PO (10:50)
[2020-03-01 10:51] LABS: HEMATOCRIT 36.6 % (37.0-47.0); HEMOGLOBIN 11.7 g/dL (12.5-16.0); MEAN CELL VOLUME 91 fl (78-100); MEAN CORPUSCULAR HEMOGLOBIN 29 pg (27-31); MEAN CORPUSCULAR HGB CONC 32 g/dL (33-37); MEAN PLATELET VOLUME 9.4 fl (7.4-10.4); PLATELET COUNT 180 K/mm3 (130-400); RED BLOOD COUNT 4.03 M/mm3 (4.10-5.30); RED CELL DISTRIBUTION WIDTH 13.9 % (11.5-14.5); WHITE BLOOD COUNT 5.7 K/mm3 (4.8-10.8)
[2020-03-01 10:57] LABS: ALBUMIN 3.8 g/dL (3.4-4.8); POTASSIUM 4.5 mmol/L (3.5-5.1); SODIUM 139 mmol/L (136-145)
[2020-03-01 10:59] LABS: CALCIUM 9.2 mg/dL (8.3-10.5)
[2020-03-01 11:00] LABS: GLUCOSE 83 mg/dL (65-105); TOTAL PROTEIN 6.3 g/dL (6.2-8.1)
[2020-03-01 11:01] LABS: CARBON DIOXIDE 24 mmol/L (23-31)
[2020-03-01 11:02] LABS: PARTIAL THROMBOPLASTIN TIME 24.8 SECONDS (21.0-32.0); PROTHROMBIN TIME 11.2 SECONDS (9.0-12.0); TOTAL BILIRUBIN 0.5 mg/dL (0.2-1.2)
[2020-03-01 11:05] LABS: AST-SGOT 32 U/L (5-34)
[2020-03-01 11:06] LABS: ALT/SGPT 37 U/L (0-55)
[2020-03-01 11:08] LABS: LYMPHOCYTE 22 % (20-51); MONOCYTE 14 % (3-10); NEUTROPHILS 60 % (42-75)
[2020-03-01 11:15] LABS: TROPONIN-I < 0.03 ng/mL (<0.030)
[2020-03-01] MEDS ORDERED: LISINOPRIL10 MG PO (12:34)
[2020-03-01 12:44] VITALS: BP 148/66
== END 2020-03-01 12:39 | disposition home or self-care (01) ==
LOC: ED 10:02
PROVIDERS: Nurse Practitioner
DX: I10 Essential (primary) hypertension (principal); I48.91 Unspecified atrial fibrillation; I25.10 Atherosclerotic heart disease of native coronary artery without angina pectoris; N17.9 Acute kidney failure, unspecified; F32.9 Major depressive disorder, single episode, unspecified; E78.5 Hyperlipidemia, unspecified; Z88.2 Allergy status to sulfonamides; Z79.01 Long term (current) use of anticoagulants; Z79.82 Long term (current) use of aspirin

== ENCOUNTER → 2020-03-07 | Outpatient (CLI) | payer MEDICARE, BC ==
[2020-03-01 12:44] VITALS: BP 148/66
[~2020-03-07] MED LIST changes: +ASPIRIN E.C. 8181 MG; +LASIX20 M1 PO; +LISINOPRIL10 MG PO; +PRAVASTATIN SOD80 MG PO
[2020-03-07 15:11] LABS: EOS # 0.2 (0.04-0.40); EOS % 3.8 % (1.0-5.0); HEMATOCRIT 39.4 % (37.0-47.0); HEMOGLOBIN 12.5 g/dL (12.5-16.0); LYMPH# 1.1 (1.50-4.00); MEAN CELL VOLUME 93 fl (78-100); MEAN CORPUSCULAR HEMOGLOBIN 29 pg (27-31); MEAN CORPUSCULAR HGB CONC 32 g/dL (33-37); MONO # 0.7 (0.20-0.80); NEU # 4.1 (1.40-6.50); PLATELET COUNT 212 K/mm3 (130-400); RED BLOOD COUNT 4.26 M/mm3 (4.10-5.30); WHITE BLOOD COUNT 6.1 K/mm3 (4.8-10.8)
[2020-03-07 15:22] LABS: POTASSIUM 4.2 mmol/L (3.5-5.1)
[2020-03-07 15:23] LABS: CALCIUM 9.5 mg/dL (8.3-10.5)
[2020-03-07 15:24] LABS: TOTAL PROTEIN 7.5 g/dL (6.2-8.1)
[2020-03-07 15:26] LABS: TOTAL BILIRUBIN 0.6 mg/dL (0.2-1.2)
== END ==
LOC: LAB 14:55
PROVIDERS: Internal Medicine
DX: I10 Essential (primary) hypertension (principal); K90.9 Intestinal malabsorption, unspecified; I25.10 Atherosclerotic heart disease of native coronary artery without angina pectoris

== ENCOUNTER → 2020-05-23 | Outpatient (CLI) | payer MEDICARE, BC ==
[2020-05-23 15:58] LABS: HEMATOCRIT 36.4 % (37.0-47.0); HEMOGLOBIN 11.2 g/dL (12.5-16.0); MEAN CELL VOLUME 89 fl (78-100); MEAN CORPUSCULAR HEMOGLOBIN 27 pg (27-31); MEAN CORPUSCULAR HGB CONC 31 g/dL (33-37); PLATELET COUNT 234 K/mm3 (130-400); RED CELL DISTRIBUTION WIDTH 13.9 % (11.5-14.5); WHITE BLOOD COUNT 6.8 K/mm3 (4.8-10.8)
[2020-05-23 16:08] LABS: ALBUMIN 3.8 g/dL (3.4-4.8); POTASSIUM 3.5 mmol/L (3.5-5.1)
[2020-05-23 16:11] LABS: TOTAL PROTEIN 6.7 g/dL (6.2-8.1)
[2020-05-23 16:12] LABS: TOTAL BILIRUBIN 0.4 mg/dL (0.2-1.2)
[2020-05-23 16:17] LABS: MAGNESIUM 1.77 mg/dL (1.60-2.60)
== END ==
LOC: LAB 15:40
PROVIDERS: Internal Medicine
DX: I50.9 Heart failure, unspecified (principal); E03.9 Hypothyroidism, unspecified; D50.9 Iron deficiency anemia, unspecified

== ENCOUNTER 2020-05-26 18:17 | Emergency (ER) | payer MEDICARE, BC ==
[~2020-05-26] VITALS: Wt 88.1 kg
[2020-05-26 23:31] VITALS: BP 179/102
== END 2020-05-26 23:32 | disposition home or self-care (01) ==
LOC: ED 18:17
DX: I10 Essential (primary) hypertension (principal); F41.9 Anxiety disorder, unspecified; E78.5 Hyperlipidemia, unspecified; I48.91 Unspecified atrial fibrillation; Z95.0 Presence of cardiac pacemaker; Z95.1 Presence of aortocoronary bypass graft; Z95.5 Presence of coronary angioplasty implant and graft; Z87.891 Personal history of nicotine dependence; Z88.2 Allergy status to sulfonamides; Z79.01 Long term (current) use of anticoagulants; Z79.82 Long term (current) use of aspirin; Z79.890 Hormone replacement therapy

== ENCOUNTER → 2020-08-20 | Outpatient (CLI) | payer MEDICARE, BC ==
[2020-08-20 15:31] LABS: POTASSIUM 3.8 mmol/L (3.5-5.1)
[2020-08-20 15:34] LABS: TOTAL PROTEIN 6.9 g/dL (6.2-8.1)
[2020-08-20 15:36] LABS: TOTAL BILIRUBIN 0.4 mg/dL (0.2-1.2)
== END ==
LOC: LAB 15:12
PROVIDERS: Internal Medicine
DX: E03.9 Hypothyroidism, unspecified (principal); D50.9 Iron deficiency anemia, unspecified; I10 Essential (primary) hypertension

== ENCOUNTER → 2020-11-05 | Outpatient (CLI) | payer MEDICARE, BC ==
[2020-11-05 14:15] LABS: BASO # 0.04 (0.02-0.10); EOS # 0.22 (0.04-0.40); EOS % 5.2 % (1.0-5.0); HEMATOCRIT 38.5 % (37.0-47.0); HEMOGLOBIN 11.8 g/dL (12.5-16.0); LYMPH# 1.01 (1.50-4.00); MEAN CELL VOLUME 85 fl (78-100); MEAN CORPUSCULAR HEMOGLOBIN 26 pg (27-31); MEAN CORPUSCULAR HGB CONC 31 g/dL (33-37); MEAN PLATELET VOLUME 8.8 fl (7.4-10.4); MONO # 0.48 (0.20-0.80); NEU # 2.47 (1.40-6.50); PLATELET COUNT 202 K/mm3 (130-400); RED BLOOD COUNT 4.55 M/mm3 (4.10-5.30); RED CELL DISTRIBUTION WIDTH 17.7 % (11.5-14.5); WHITE BLOOD COUNT 4.2 K/mm3 (4.8-10.8)
== END ==
LOC: LAB 14:05
PROVIDERS: Internal Medicine
DX: D50.9 Iron deficiency anemia, unspecified (principal); E03.9 Hypothyroidism, unspecified

== ENCOUNTER → 2021-05-16 | Outpatient (CLI) | payer MEDICARE, BC | LOC: LAB 13:45 | DX: Z01.812 Encounter for preprocedural laboratory examination (principal); Z20.822 Contact with and (suspected) exposure to COVID-19 ==

== ENCOUNTER → 2021-08-19 | Outpatient (CLI) | payer MEDICARE, BC ==
[2021-08-19 09:54] LABS: ALBUMIN 3.8 g/dL (3.4-4.8); POTASSIUM 4.1 mmol/L (3.5-5.1)
[2021-08-19 09:55] LABS: CALCIUM 9.8 mg/dL (8.3-10.5)
[2021-08-19 09:56] LABS: TOTAL PROTEIN 6.4 g/dL (6.2-8.1)
[2021-08-19 09:58] LABS: TOTAL BILIRUBIN 0.6 mg/dL (0.2-1.2)
[2021-08-19 11:19] LABS: BASO # 0.05 K/mm3 (0.02-0.10); HEMATOCRIT 41.9 % (37.0-47.0); HEMOGLOBIN 13.5 g/dL (12.5-16.0); LYMPH# 1.19 K/mm3 (1.50-4.00); MEAN CELL VOLUME 98 fl (78-100); MEAN CORPUSCULAR HEMOGLOBIN 32 pg (27-31); MEAN CORPUSCULAR HGB CONC 32 g/dL (33-37); MEAN PLATELET VOLUME 9.6 fl (7.4-10.4); MONO # 0.52 K/mm3 (0.20-0.80); NEU # 3.06 K/mm3 (1.40-6.50); PLATELET COUNT 195 K/mm3 (130-400); RED BLOOD COUNT 4.26 M/mm3 (4.10-5.30); RED CELL DISTRIBUTION WIDTH 13.4 % (11.5-14.5)
== END ==
LOC: LAB 09:03
PROVIDERS: Internal Medicine
DX: I11.0 Hypertensive heart disease with heart failure (principal); I25.10 Atherosclerotic heart disease of native coronary artery without angina pectoris; K90.9 Intestinal malabsorption, unspecified; E03.9 Hypothyroidism, unspecified; D50.9 Iron deficiency anemia, unspecified; I50.9 Heart failure, unspecified

== ENCOUNTER → 2021-12-04 | Outpatient (CLI) | payer MEDICARE, BC | LOC: LAB 14:46 | DX: N39.0 Urinary tract infection, site not specified (principal) ==

== ENCOUNTER → 2022-08-27 | Outpatient (CLI) | payer MEDICARE, BC ==
[2022-08-27 11:12] LABS: BASO # 0.02 K/mm3 (0.02-0.10); EOS # 0.19 K/mm3 (0.04-0.40); EOS % 4.4 % (1.0-5.0); HEMATOCRIT 41.7 % (37.0-47.0); HEMOGLOBIN 13.2 g/dL (12.5-16.0); LYMPH# 0.93 K/mm3 (1.50-4.00); MEAN CELL VOLUME 97 fl (78-100); MEAN CORPUSCULAR HEMOGLOBIN 31 pg (27-31); MEAN CORPUSCULAR HGB CONC 32 g/dL (33-37); MONO # 0.53 K/mm3 (0.20-0.80); PLATELET COUNT 147 K/mm3 (130-400); RED BLOOD COUNT 4.31 M/mm3 (4.10-5.30); RED CELL DISTRIBUTION WIDTH 13.9 % (11.5-14.5); WHITE BLOOD COUNT 4.3 K/mm3 (4.8-10.8)
[2022-08-27 11:19] LABS: POTASSIUM 3.7 mmol/L (3.5-5.1)
[2022-08-27 11:20] LABS: CALCIUM 9.1 mg/dL (8.3-10.5)
[2022-08-27 11:21] LABS: TOTAL PROTEIN 6.8 g/dL (6.2-8.1)
[2022-08-27 11:23] LABS: TOTAL BILIRUBIN 0.4 mg/dL (0.2-1.2)
[2022-08-27 11:27] LABS: MAGNESIUM 1.89 mg/dL (1.60-2.60)
== END ==
LOC: LAB 10:57
PROVIDERS: Internal Medicine
DX: I50.9 Heart failure, unspecified (principal); I25.10 Atherosclerotic heart disease of native coronary artery without angina pectoris; I48.91 Unspecified atrial fibrillation; E03.9 Hypothyroidism, unspecified; K90.9 Intestinal malabsorption, unspecified; G47.33 Obstructive sleep apnea (adult) (pediatric); N83.201 Unspecified ovarian cyst, right side; R73.03 Prediabetes

== ENCOUNTER → 2023-02-18 | Outpatient (CLI) | payer MEDICARE, BC ==
[2023-02-18 16:08] LABS: BASO # 0.03 K/mm3 (0.02-0.10); EOS # 0.17 K/mm3 (0.04-0.40); EOS % 3.3 % (1.0-5.0); HEMATOCRIT 42.7 % (37.0-47.0); HEMOGLOBIN 13.8 g/dL (12.5-16.0); LYMPH# 0.98 K/mm3 (1.50-4.00); MEAN CELL VOLUME 95 fl (78-100); MEAN CORPUSCULAR HEMOGLOBIN 31 pg (27-31); MEAN CORPUSCULAR HGB CONC 32 g/dL (33-37); MEAN PLATELET VOLUME 9.4 fl (7.4-10.4); MONO # 0.56 K/mm3 (0.20-0.80); NEU # 3.44 K/mm3 (1.40-6.50); PLATELET COUNT 157 K/mm3 (130-400); RED CELL DISTRIBUTION WIDTH 13.7 % (11.5-14.5); WHITE BLOOD COUNT 5.2 K/mm3 (4.8-10.8)
[2023-02-18 17:19] LABS: ALBUMIN 4.1 g/dL (3.4-4.8); CALCIUM 9.7 mg/dL (8.3-10.5); MAGNESIUM 1.85 mg/dL (1.60-2.60); POTASSIUM 3.6 mmol/L (3.5-5.1); TOTAL BILIRUBIN 0.5 mg/dL (0.2-1.2); TOTAL PROTEIN 6.9 g/dL (6.2-8.1)
== END ==
LOC: LAB 15:44
PROVIDERS: Internal Medicine
DX: I50.9 Heart failure, unspecified (principal); I25.10 Atherosclerotic heart disease of native coronary artery without angina pectoris; I48.91 Unspecified atrial fibrillation; N83.201 Unspecified ovarian cyst, right side; E03.9 Hypothyroidism, unspecified; R73.03 Prediabetes; K90.9 Intestinal malabsorption, unspecified; G47.33 Obstructive sleep apnea (adult) (pediatric)

== ENCOUNTER 2023-05-28 09:43 | Emergency (ER) | payer MEDICARE, BC ==
[~2023-05-28] VITALS: Ht 157.5 cm; Wt 78.2 kg
[2023-05-28] MEDS ORDERED: CARVEDILOL6.25 MG PO (10:00)
[2023-05-28] MEDS ORDERED: POTASSIUM CHLO10 ME6 PO (10:02)
[2023-05-28] MEDS ORDERED: ALDACTONE 25MG25 MG PO (10:03)
[2023-05-28 10:35] VITALS: BP 118/66
== END 2023-05-28 10:40 | disposition home or self-care (01) ==
LOC: ED 09:43
DX: Z48.810 Encounter for surgical aftercare following surgery on the sense organs (principal)

== ENCOUNTER → 2023-06-02 | Outpatient (CLI) | payer MEDICARE, BC ==
[~2023-06-02] MED LIST changes: +ALDACTONE 25MG25 MG PO; +CARVEDILOL6.25 MG PO; +LASIX 80MG TABL80 MG PO; +POTASSIUM CHLO10 ME6 PO; +VITAMIN E45 MG
[2023-06-02 14:16] LABS: CALCIUM 9.2 mg/dL (8.3-10.5)
== END ==
LOC: LAB 13:45
DX: I50.23 Acute on chronic systolic (congestive) heart failure (principal)

== ENCOUNTER → 2023-06-17 | Outpatient (CLI) | payer MEDICARE, BC ==
[2023-06-17 10:44] LABS: BASO # 0.04 K/mm3 (0.02-0.10); EOS # 0.22 K/mm3 (0.04-0.40); HEMATOCRIT 43.1 % (37.0-47.0); HEMOGLOBIN 14.1 g/dL (12.5-16.0); MEAN CELL VOLUME 94 fl (78-100); MEAN CORPUSCULAR HEMOGLOBIN 31 pg (27-31); MEAN CORPUSCULAR HGB CONC 33 g/dL (33-37); MONO # 0.55 K/mm3 (0.20-0.80); NEU # 3.66 K/mm3 (1.40-6.50); PLATELET COUNT 185 K/mm3 (130-400); RED BLOOD COUNT 4.57 M/mm3 (4.10-5.30); RED CELL DISTRIBUTION WIDTH 14.3 % (11.5-14.5); WHITE BLOOD COUNT 5.5 K/mm3 (4.8-10.8)
[2023-06-17 10:47] LABS: CALCIUM 9.4 mg/dL (8.3-10.5)
[2023-06-17 10:48] LABS: TOTAL PROTEIN 6.6 g/dL (6.2-8.1)
[2023-06-17 10:50] LABS: TOTAL BILIRUBIN 0.4 mg/dL (0.2-1.2)
[2023-06-17 10:54] LABS: MAGNESIUM 1.98 mg/dL (1.60-2.60)
== END ==
LOC: LAB 10:26
PROVIDERS: Internal Medicine
DX: I50.9 Heart failure, unspecified (principal)

== ENCOUNTER → 2023-10-06 | Outpatient (CLI) | payer MEDICARE, BC ==
[2023-11-25 11:48] LABS: ALBUMIN 3.8 g/dL (3.4-4.8); CALCIUM 9.4 mg/dL (8.3-10.5); TOTAL BILIRUBIN 0.4 mg/dL (0.2-1.2); TOTAL PROTEIN 6.6 g/dL (6.2-8.1)
== END ==
LOC: LAB 09:55
PROVIDERS: Nurse Practitioner Family
DX: I11.0 Hypertensive heart disease with heart failure (principal); I50.22 Chronic systolic (congestive) heart failure; I25.10 Atherosclerotic heart disease of native coronary artery without angina pectoris; I25.5 Ischemic cardiomyopathy; E78.2 Mixed hyperlipidemia

== ENCOUNTER → 2023-10-18 | Outpatient (CLI) | payer MEDICARE, BC ==
[~2023-10-18] MED LIST changes: +B COMPLEX1 EACH PO; +ELDERBERRY350 MG PO; +ENTRESTO 24 MG1 EACH PO; +MACROBID 100 M100 MG PO; +ROSUVASTATIN CA20 MG PO
[2023-12-08 13:17] LABS: BASO # 0.02 K/mm3 (0.02-0.10); HEMATOCRIT 40.3 % (37.0-47.0); HEMOGLOBIN 13.1 g/dL (12.5-16.0); LYMPH# 0.92 K/mm3 (1.50-4.00); MEAN CELL VOLUME 95 fl (78-100); MEAN CORPUSCULAR HEMOGLOBIN 31 pg (27-31); MEAN CORPUSCULAR HGB CONC 33 g/dL (33-37); MEAN PLATELET VOLUME 9.2 fl (7.4-10.4); MONO # 0.54 K/mm3 (0.20-0.80); NEU # 3.29 K/mm3 (1.40-6.50); PLATELET COUNT 162 K/mm3 (130-400); RED BLOOD COUNT 4.24 M/mm3 (4.10-5.30); RED CELL DISTRIBUTION WIDTH 13.6 % (11.5-14.5)
[2023-12-08 13:23] LABS: ALBUMIN 3.9 g/dL (3.4-4.8); ALT/SGPT 14 U/L (0-55); AST-SGOT 21 U/L (5-34); CALCIUM 9.2 mg/dL (8.3-10.5); CARBON DIOXIDE 22 mmol/L (23-31); GLUCOSE 84 mg/dL (65-105); MAGNESIUM 2.13 mg/dL (1.60-2.60); SODIUM 143 mmol/L (136-145); TOTAL BILIRUBIN 0.3 mg/dL (0.2-1.2); TOTAL PROTEIN 6.6 g/dL (6.2-8.1)
== END ==
LOC: LAB 11:35
PROVIDERS: Internal Medicine
DX: I25.10 Atherosclerotic heart disease of native coronary artery without angina pectoris (principal); I50.9 Heart failure, unspecified; K90.9 Intestinal malabsorption, unspecified; R73.03 Prediabetes

== ENCOUNTER → 2024-01-17 | Outpatient (CLI) | payer MEDICARE, BC ==
[2024-01-17 12:06] LABS: BASO # 0.01 K/mm3 (0.02-0.10); EOS # 0.16 K/mm3 (0.04-0.40); EOS % 2.9 % (1.0-5.0); HEMATOCRIT 42.8 % (37.0-47.0); HEMOGLOBIN 13.7 g/dL (12.5-16.0); LYMPH# 0.96 K/mm3 (1.50-4.00); MEAN CELL VOLUME 94 fl (78-100); MEAN CORPUSCULAR HEMOGLOBIN 30 pg (27-31); MEAN CORPUSCULAR HGB CONC 32 g/dL (33-37); MEAN PLATELET VOLUME 8.9 fl (7.4-10.4); MONO # 0.44 K/mm3 (0.20-0.80); NEU # 3.98 K/mm3 (1.40-6.50); PLATELET COUNT 165 K/mm3 (130-400); RED BLOOD COUNT 4.55 M/mm3 (4.10-5.30); RED CELL DISTRIBUTION WIDTH 13.8 % (11.5-14.5); WHITE BLOOD COUNT 5.6 K/mm3 (4.8-10.8)
[2024-01-17 12:28] LABS: CALCIUM 9.5 mg/dL (8.3-10.5)
[2024-01-17 12:29] LABS: TOTAL PROTEIN 6.8 g/dL (6.2-8.1)
[2024-01-17 12:31] LABS: TOTAL BILIRUBIN 0.5 mg/dL (0.2-1.2)
[2024-01-17 12:36] LABS: MAGNESIUM 1.94 mg/dL (1.60-2.60)
== END ==
LOC: LAB 11:49
PROVIDERS: Internal Medicine
DX: I50.9 Heart failure, unspecified (principal); R73.03 Prediabetes

== ENCOUNTER 2024-03-25 10:42 | Emergency (ER) | payer MEDICARE, BC ==
[~2024-03-25] VITALS: Ht 152.4 cm; Wt 77.0 kg
[2024-03-25 11:21] LABS: URINE APPEARANCE CLOUDY (CLEAR); URINE COLOR BROWN (YELLOW)
[2024-03-25 11:22] LABS: URINE BILIRUBIN NEGATIVE (NEGATIVE); URINE GLUCOSE NEGATIVE (NEGATIVE); URINE KETONE NEGATIVE (NEGATIVE); URINE NITRATE NEGATIVE (NEGATIVE); URINE PROTEIN(semi-quant) 2+ (NEGATIVE)
[2024-03-25 11:23] LABS: URINE BLOOD 3+ (NEGATIVE); URINE LEUKOCYTE ESTERASE 2+ (NEGATIVE); URINE WBC >50 /hpf (0-3)
[2024-03-25] MEDS ORDERED: AMOXIL500 M1 PO (11:34)
[2024-03-25 11:40] VITALS: BP 122/76
[2024-03-27] MEDS ORDERED: MACROBID 100 M100 MG PO (17:14)
== END 2024-03-25 11:43 | disposition home or self-care (01) ==
LOC: ED 10:42
PROVIDERS: Family Medicine
DX: N30.91 Cystitis, unspecified with hematuria (principal); R94.31 Abnormal electrocardiogram [ECG] [EKG]; Z95.5 Presence of coronary angioplasty implant and graft; Z88.2 Allergy status to sulfonamides; Z95.0 Presence of cardiac pacemaker

== ENCOUNTER → 2024-04-20 | Outpatient (CLI) | payer MEDICARE, BC ==
[~2024-04-20] MED LIST changes: +AMOXIL500 M1 PO
[2024-04-20 11:15] LABS: BASO # 0.03 K/mm3 (0.02-0.10); EOS # 0.33 K/mm3 (0.04-0.40); EOS % 5.9 % (1.0-5.0); HEMATOCRIT 41.3 % (37.0-47.0); HEMOGLOBIN 13.1 g/dL (12.5-16.0); LYMPH# 0.75 K/mm3 (1.50-4.00); MEAN CELL VOLUME 96 fl (78-100); MEAN CORPUSCULAR HEMOGLOBIN 31 pg (27-31); MEAN CORPUSCULAR HGB CONC 32 g/dL (33-37); MEAN PLATELET VOLUME 8.8 fl (7.4-10.4); MONO # 0.57 K/mm3 (0.20-0.80); PLATELET COUNT 203 K/mm3 (130-400); RED BLOOD COUNT 4.29 M/mm3 (4.10-5.30); RED CELL DISTRIBUTION WIDTH 13.5 % (11.5-14.5); WHITE BLOOD COUNT 5.6 K/mm3 (4.8-10.8)
[2024-04-20 11:22] LABS: ALBUMIN 3.8 g/dL (3.4-4.8)
[2024-04-20 11:24] LABS: CALCIUM 9.7 mg/dL (8.3-10.5)
[2024-04-20 11:27] LABS: TOTAL BILIRUBIN 0.5 mg/dL (0.2-1.2)
[2024-04-20 11:32] LABS: MAGNESIUM 1.97 mg/dL (1.60-2.60)
== END ==
LOC: LAB 10:49
PROVIDERS: Internal Medicine
DX: I50.9 Heart failure, unspecified (principal); R73.03 Prediabetes; K90.9 Intestinal malabsorption, unspecified

== ENCOUNTER → 2024-07-20 | Outpatient (CLI) | payer MEDICARE, BC ==
[2024-07-20 10:28] LABS: BASO # 0.03 K/mm3 (0.02-0.10); EOS # 0.11 K/mm3 (0.04-0.40); EOS % 2.6 % (1.0-5.0); HEMATOCRIT 42.4 % (37.0-47.0); HEMOGLOBIN 13.4 g/dL (12.5-16.0); LYMPH# 0.98 K/mm3 (1.50-4.00); MEAN CELL VOLUME 97 fl (78-100); MEAN CORPUSCULAR HEMOGLOBIN 31 pg (27-31); MEAN CORPUSCULAR HGB CONC 32 g/dL (33-37); MEAN PLATELET VOLUME 9.2 fl (7.4-10.4); MONO # 0.53 K/mm3 (0.20-0.80); NEU # 2.53 K/mm3 (1.40-6.50); PLATELET COUNT 162 K/mm3 (130-400); RED BLOOD COUNT 4.36 M/mm3 (4.10-5.30); RED CELL DISTRIBUTION WIDTH 14.2 % (11.5-14.5); WHITE BLOOD COUNT 4.2 K/mm3 (4.8-10.8)
[2024-07-20 10:35] LABS: ALBUMIN 3.8 g/dL (3.4-4.8)
[2024-07-20 10:37] LABS: TOTAL PROTEIN 6.8 g/dL (6.2-8.1)
[2024-07-20 10:39] LABS: TOTAL BILIRUBIN 0.4 mg/dL (0.2-1.2)
[2024-07-20 10:44] LABS: MAGNESIUM 2.03 mg/dL (1.60-2.60)
[2024-07-20 10:49] LABS: PH-URINE 5.5 (5.0 - 8.0); URINE APPEARANCE CLEAR (CLEAR); URINE BILIRUBIN NEGATIVE (NEGATIVE); URINE BLOOD NEGATIVE (NEGATIVE); URINE COLOR YELLOW (YELLOW); URINE GLUCOSE NEGATIVE (NEGATIVE); URINE KETONE NEGATIVE (NEGATIVE); URINE LEUKOCYTE ESTERASE 1+ (NEGATIVE); URINE MUCUS PRESENT (NOT PRESENT); URINE NITRATE NEGATIVE (NEGATIVE); URINE PROTEIN(semi-quant) NEGATIVE (NEGATIVE); URINE WBC 31-50 /hpf (0-3)
== END ==
LOC: LAB 10:08
PROVIDERS: Internal Medicine
DX: I50.9 Heart failure, unspecified (principal); I25.10 Atherosclerotic heart disease of native coronary artery without angina pectoris; E03.9 Hypothyroidism, unspecified; R73.03 Prediabetes